=== PATIENT | female | born 1995 | race Caucasian/White ===

== ENCOUNTER 2016-07-27 16:43 | Emergency (ER) | payer MEDICAID ==
[~2016-07-27] VITALS: Ht 162.6 cm; Wt 109.0 kg
[2016-07-27] MEDS ORDERED: KETOROLAC 60MG/2ML VIAL IM STA (19:24)
[2016-07-27] MEDS ORDERED: ONDANSETRON HCL 4MG/2ML VIAL IM STA (19:24)
[2016-07-27 19:46] LABS: BASOPHILS % 0.8 % (0.0-2.0); EOSINOPHILS % 1.3 % (0.0-5.0); HEMATOCRIT. 38.3 % (36.0-48.0); LYMPHOCYTES % 32.9 % (20.0-50.0); MEAN CORPUSCULAR HEMOGLOBIN 28.9 pg (28.0-32.0); MEAN CORPUSCULAR VOLUME 85.2 fL (81.0-99.0); MEAN PLATELET VOLUME 9.5 fl (7.4-10.4); MONOCYTES % 5.9 % (2.0-8.0); NEUTROPHILS % 59.1 % (40.0-76.0); PLATELET 293 x1000/uL (130-400); RED CELL DISTRIBUTION WIDTH 13.9 % (11.6-14.6); WHITE BLOOD COUNT 8.5 x1000/uL (4.5-11.0)
[2016-07-27 19:50] LABS: CHLORIDE 106 mEq/L (98-107); INDEX HEMOLYSI 1 (1-3); INDEX ICTERIC 1 (1-4); INDEX LIPEMIC 1 (1-3)
[2016-07-27 19:53] LABS: CALCIUM 8.7 mg/dL (8.5-10.1)
[2016-07-27 19:59] LABS: ALANINE AMINOTRANSFERASE 20 IU/L (13-61); ALBUMIN 3.3 g/dL (3.4-5.0); ANION GAP 9; CARBON DIOXIDE 28 mEq/L (21-32); LIPASE 105 IU/L (73-393); UREA NITROGEN BLOOD 8 mg/dL (7-21); eGFR > 60 mL/min (>60)
[2016-07-27 20:35] LABS: CLARITY URINE CLEAR (CLEAR); COLOR URINE YELLOW (YELLOW); GLUCOSE URINE NEGATIVE (NEGATIVE); KETONES URINE NEGATIVE (NEGATIVE); LEUKOCYTE ESTERASE URINE NEGATIVE (NEGATIVE); NITRITE URINE NEGATIVE (NEGATIVE); OCCULT BLOOD URINE TRACE (NEGATIVE); PROTEIN URINE NEGATIVE (NEGATIVE); SPECIFIC GRAVITY URINE 1.008 (1.005-1.030); UROBILINOGEN URINE 0.2 E.U./dL (0.2-1.0)
[2016-07-27 20:56] LABS: BACTERIA URINE TRACE; RBC URINE 0-2 /hpf (0-2); SQUAMOUS EPITHELIAL CELL URINE FEW /lpf (RARE/1+); WBC URINE NONE SEEN /hpf (0-2)
[2016-07-27 22:50] VITALS: BP 128/70
== END 2016-07-27 22:51 | disposition home or self-care (01) ==
LOC: ER 16:44
DX: G44.89 Other headache syndrome (principal); M54.2 Cervicalgia
CPT/HCPCS: 36415; 80053; 81001; 81025; 83690; 85025; 96372; 99284; J1885; J2405

== ENCOUNTER 2016-09-11 09:58 | Emergency (ER) | payer MEDICAID ==
[~2016-09-11] VITALS: Ht 162.6 cm; Wt 109.0 kg
[2016-09-11] MEDS ORDERED: ONDANSETRON HCL 4MG/2ML VIAL IV STA (10:25)
[2016-09-11] MEDS ORDERED: SODIUM CHLORIDE 0.9% 1,000 ML IV ONE (10:25)
[2016-09-11] MEDS ORDERED: FAMOTIDINE 20MG/2ML VIAL IV ONE (10:30)
[2016-09-11 10:38] LABS: CLARITY URINE CLOUDY (CLEAR); COLOR URINE YELLOW (YELLOW); GLUCOSE URINE NEGATIVE (NEGATIVE); KETONES URINE NEGATIVE (NEGATIVE); LEUKOCYTE ESTERASE URINE 2+ (NEGATIVE); NITRITE URINE POSITIVE (NEGATIVE); OCCULT BLOOD URINE 3+ (NEGATIVE); PH URINE 5.5 (4.5-8.0); PROTEIN URINE TRACE (NEGATIVE); SPECIFIC GRAVITY URINE 1.018 (1.005-1.030); UROBILINOGEN URINE 0.2 E.U./dL (0.2-1.0)
[2016-09-11 10:56] LABS: BASOPHILS % 0.3 % (0.0-2.0); EOSINOPHILS % 0.8 % (0.0-5.0); HEMATOCRIT. 37.5 % (36.0-48.0); HEMOGLOBIN. 12.8 g/dL (12.0-16.0); LYMPHOCYTES % 10.8 % (20.0-50.0); MEAN CORPUSCULAR HEMOGLOBIN 28.9 pg (28.0-32.0); MEAN CORPUSCULAR VOLUME 85.1 fL (81.0-99.0); MEAN PLATELET VOLUME 9.3 fl (7.4-10.4); MONOCYTES % 6.1 % (2.0-8.0); PLATELET 275 x1000/uL (130-400); RED BLOOD CELL COUNT 4.41 mill/uL (4.2-5.4); RED CELL DISTRIBUTION WIDTH 13.7 % (11.6-14.6)
[2016-09-11 11:00] LABS: CHLORIDE 106 mEq/L (98-107)
[2016-09-11 11:06] LABS: CARBON DIOXIDE 27 mEq/L (21-32); HCG SCREEN NEGATIVE
[2016-09-11] MEDS ORDERED: KETOROLAC 30MG/ML VIAL IV ONE (11:30)
[2016-09-11 12:34] VITALS: BP 112/59
== END 2016-09-11 12:54 | disposition home or self-care (01) ==
LOC: ER 10:46
DX: N39.0 Urinary tract infection, site not specified (principal); R19.7 Diarrhea, unspecified; N89.8 Other specified noninflammatory disorders of vagina; N93.8 Other specified abnormal uterine and vaginal bleeding
CPT/HCPCS: 36415; 80053; 81001; 83690; 84703; 85025; 96361; 96374; 96375; 99285; J1885; J2405; J3490; J7030; Z7610

== ENCOUNTER 2018-05-25 05:22 | Emergency (ER) | payer MEDICAID ==
[~2018-05-25] VITALS: Ht 162.6 cm; Wt 104.0 kg
[2018-05-25] MEDS ORDERED: ONDANSETRON HCL 4MG/2ML INJ IV STA (06:49)
[2018-05-25] MEDS ORDERED: FAMOTIDINE 20MG/2ML VIAL IV STA (06:49)
[2018-05-25] MEDS ORDERED: SODIUM CHLORIDE 0.9% 1,000 ML IV ONE (06:49)
[2018-05-25] MEDS ORDERED: KETOROLAC 30MG/ML VIAL IV STA (06:49)
[2018-05-25 07:07] LABS: BASOPHILS % 0.5 % (0.0-2.0); EOSINOPHILS % 2.3 % (0.0-5.0); HEMATOCRIT. 37.5 % (36.0-48.0); HEMOGLOBIN. 12.6 g/dL (12.0-16.0); LYMPHOCYTES % 24.2 % (20.0-50.0); MEAN CORPUSCULAR HEMOGLOBIN 28.9 pg (28.0-32.0); MEAN CORPUSCULAR VOLUME 85.8 fL (81.0-99.0); MONOCYTES % 11.6 % (2.0-8.0); NEUTROPHILS % 61.4 % (40.0-76.0); PLATELET 260 x1000/uL (130-400); RED BLOOD CELL COUNT 4.37 mill/uL (4.2-5.4); RED CELL DISTRIBUTION WIDTH 13.6 % (11.6-14.6)
[2018-05-25 07:11] LABS: CHLORIDE 110 mEq/L (98-107)
[2018-05-25 07:12] LABS: PROTHROMBIN TIME 10.4 sec (9.1-11.1)
[2018-05-25 07:14] LABS: CLARITY URINE CLEAR (CLEAR); COLOR URINE YELLOW (YELLOW); KETONES URINE NEGATIVE (NEGATIVE); LEUKOCYTE ESTERASE URINE NEGATIVE (NEGATIVE); NITRITE URINE NEGATIVE (NEGATIVE); OCCULT BLOOD URINE TRACE (NEGATIVE); PH URINE 5.5 (4.5-8.0); PROTEIN URINE NEGATIVE (NEGATIVE); SPECIFIC GRAVITY URINE 1.022 (1.005-1.030); UROBILINOGEN URINE 0.2 E.U./dL (0.2-1.0)
[2018-05-25 09:02] VITALS: BP 119/64
== END 2018-05-25 09:02 | disposition home or self-care (01) ==
LOC: ER 05:22
DX: K29.00 Acute gastritis without bleeding (principal); R11.10 Vomiting, unspecified
CPT/HCPCS: 36415; 71045; 80053; 81003; 81025; 83690; 85025; 85610; 96361; 96374; 96375; 99284; J1885; J2405; J3490; J7030; Z7610

== ENCOUNTER 2019-04-16 19:58 | Emergency (ER) | payer MEDICAID ==
[~2019-04-16] VITALS: Ht 162.6 cm; Wt 107.0 kg
[2019-04-17] MEDS ORDERED: IPRATROPIUM BROMIDE (0.02%) 0.5MG/2.5ML NEB HHN STA (02:10)
[2019-04-17] MEDS ORDERED: ALBUTEROL (0.083%) 2.5MG/3ML NEB HHN STA (02:10)
[2019-04-17] MEDS ORDERED: METHYLPREDNISOLONE SOD SUCC 125 MG/2 ML VIAL IM STA (02:10)
[2019-04-17] MEDS ORDERED: IBUPROFEN 600MG TABLET PO STA (02:10)
[2019-04-17 04:32] VITALS: BP 138/81
== END 2019-04-17 04:36 | disposition home or self-care (01) ==
LOC: ER 20:10
DX: J20.9 Acute bronchitis, unspecified (principal); J45.909 Unspecified asthma, uncomplicated; M94.0 Chondrocostal junction syndrome [Tietze]
CPT/HCPCS: 71045; 93005; 94640; 96372; 99283; J2930; J7611; Z7610

== ENCOUNTER 2023-03-23 21:20 | Emergency (ER) | payer MEDICAID ==
[~2023-03-23] VITALS: Ht 165.1 cm; Wt 104.3 kg
[2023-03-23 22:05] LABS: BASOPHILS % 0.4 % (0.0-2.0); EOSINOPHILS % 1.1 % (0.0-5.0); HEMATOCRIT. 39.7 % (36.0-48.0); LYMPHOCYTES % 33.1 % (20.0-50.0); MEAN CORPUSCULAR HEMOGLOBIN 29.8 pg (28.0-32.0); MEAN CORPUSCULAR HGB CONC 32.8 g/dL (31.0-37.0); MEAN PLATELET VOLUME 9.7 fl (7.4-10.4); MONOCYTES % 6.2 % (2.0-8.0); NEUTROPHILS % 59.2 % (40.0-76.0); PLATELET 302 x1000/uL (130-400); RED BLOOD CELL COUNT 4.36 mill/uL (4.2-5.4); RED CELL DISTRIBUTION WIDTH 13.5 % (11.6-14.6); WHITE BLOOD COUNT 8.3 x1000/uL (4.5-11.0)
[2023-03-23 22:23] VITALS: BP 142/73; PULSE 78; RESP 17; TEMP 99.3; O2SAT 100
[2023-03-23 22:41] LABS: ALANINE AMINOTRANSFERASE 19 IU/L (10-49); ALBUMIN 4.2 g/dL (3.2-4.8); ASPARTATE AMINOTRANSFERASE 17 IU/L (<34); B-HCG QUANTITATIVE 16522 mIU/mL (<3); BILIRUBIN TOTAL 0.3 mg/dL (0.1-1.0); CALCIUM 9.3 mg/dL (8.7-10.4); CARBON DIOXIDE 27 mEq/L (21-32); CHLORIDE 107 mEq/L (98-107); CREATININE 0.4 mg/dL (0.6-1.0); GLUCOSE 85 mg/dL (70-105); PROTEIN TOTAL 7.4 g/dL (6.0-8.3); SODIUM 138 mEq/L (136-145); UREA NITROGEN BLOOD 7 mg/dL (9-23)
[2023-03-23 23:00] LABS: CLARITY URINE CLOUDY (CLEAR); COLOR URINE YELLOW (YELLOW); GLUCOSE URINE NEGATIVE (NEGATIVE); KETONES URINE NEGATIVE (NEGATIVE); LEUKOCYTE ESTERASE URINE 2+ (NEGATIVE); NITRITE URINE NEGATIVE (NEGATIVE); OCCULT BLOOD URINE 3+ (NEGATIVE); PH URINE 5.5 (4.5-8.0); PROTEIN URINE 1+ (NEGATIVE); SPECIFIC GRAVITY URINE 1.018 (1.005-1.030)
[2023-03-23 23:18] LABS: BACTERIA URINE 4+; RBC URINE 50-100 /hpf (0-2); SQUAMOUS EPITHELIAL CELL URINE 3+ /lpf (RARE/1+)
[2023-03-24] MEDS ORDERED: CEPH500C2 MT (00:10)
== END 2023-03-24 00:59 | disposition home or self-care (01) ==
LOC: ER 21:20
DX: O20.0 Threatened abortion (principal); O23.31 Infections of other parts of urinary tract in pregnancy, first trimester; Z3A.01 Less than 8 weeks gestation of pregnancy
CPT/HCPCS: 36415; 76801; 80053; 81003; 84702; 85025; 86850; 86900; 99284